=== PATIENT | male | born 1970 | race Caucasian/White ===

== ENCOUNTER 2020-04-04 15:51 | Inpatient (IN) | payer OTHER ==
[2020-04-04 17:13] VITALS: BMI 21.9
--- NOTE | 2020-04-04 18:18 | HP ---
CIWA Score - Admission Criteria [facility] Guidelines: Admission for Medically Managed Detox: Requires at least one of the followin. CIWA greater than 12 2. Seizures within the past 24 hours 3. Delirium tremens within the past 24 hours 4. Hallucinations within the past 24 hours 5. Acute intervention needed for co occurring medical disorder 6. Acute intervention needed for co occurring psychiatric disorder 7. Severe withdrawal that cannot be handled at a lower level of care (continued vomiting, continued diarrhea, abnormal vital signs) requiring intravenous medication and/or fluids 8. Admission ROS S - HPI Chief Complaint: " I need to stop drinking and get my life on track. This time I want to do it." Allergies/Adverse Reactions: Allergies Allergy/AdvReac Type Severity Reaction Status Date / Time amoxicillin Allergy Intermediate Hives Verified 04/04/20 18:55 History of Present Illness: 49 yo admitted to [facility] on 03/28/20, and discharged today, where was treated for Pulmonary Embolism w/ Infarct and had co-occurring heroin and alcohol use disorder. Was detoxed @ [facility]. Last dose methadone today was 20 mg. Denies blackouts, overdoses, or seizures. Alcohol use began at age 5. Was drinking 1 case beer daily prior to hospitalization. Heroin use began at age 12. States using x 42 years. Was using 7-8 bags both IV and nasal prior to hospitalization. Is interested in getting on a Methadone Program. Patient was medicated w/ Methadone 20 mg and informed that dose would be tapered off. Nicotine use began at 9. Smoke 2PPD. Last smoked 03/28. Has been using nicorette gum. Does not want the patch. PMHx: PE w/ infarct; Blood clots - BLE; cellulitis (L) leg; HTN; Elevated LFT's; Blind (L) eye COVID Test negative - 03/28/20 MHHx: Denies depression. Denies thoughts of harming self or others SHx: Domiciled. Unemployed. Denies legal issues. Patient Name: Ga Marks Date: 1970 Address: [address] [place] [id number] Sex: Male Rx Written Rx Dispensed Drug Quantity Days Supply Prescriber Name Payment Method Dispenser 09/08/2019 09/08/2019 methadone hcl 5 mg tablet 6 2 Rufina Camilo [facility] #[id number] Exam Limitations: No Limitations - Ebola screening Have you traveled outside of the country in the last 21 days: No (COVID neg) Have you had contact with anyone from an Ebola affected area: No Have you been sick,other than usual withdrawal symptoms: No Do you have a fever: No - Review of Systems Constitutional: Changes in sleep (Difficulty staying asleep), Unintentional Wgt. Loss EENT: reports: Blurred Vision (reading), Dental Problems (Missing multiple teeth - chews and swallows ok), Other (Blind (L) eye) Respiratory: reports: SOB with Exertion Cardiac: reports: No Symptoms Reported GI: reports: No Symptoms Reported : reports: No Symptoms Reported Musculoskeletal: reports: Back Pain (Chronic sharp/pins and needles pain of full spine - triggered by fast movement. Improves w/ rest) Integumentary: reports: Bruising Neuro: reports: Numbness (in legs -uses cane to steady self) Endocrine: reports: No Symptoms Reported Hematology: reports: Blood Clots, Easy Bleeding, Easy Bruising Psychiatric: reports: Judgement Intact, Mood/Affect Appropiate, Orientated x3 Patient History - PPD History Previous Implant?: Yes Documented Results: Negative w/o proof Implanted On Prior [facility] Admission?: No PPD to be Administered?: Yes - Smoking Cessation Smoking history: Current every day smoker Have you smoked in the past 12 months: Yes Aproximately how many cigarettes per day: 40 Hx Chewing Tobacco Use: No Initiated information on smoking cessation: Yes 'Breaking Loose' booklet given: 04/04/20 - Substance & Tx. History Hx Alcohol Use: Yes Hx Substance Use: Yes Substance Use Type: Alcohol, Heroin Hx Substance Use Treatment: Yes (detox, rehabs ) - Substances abused Heroin Substance route: Inhalation Frequency: Daily Amount used: 6 to 7 bags Age of first use: 12 Date of last use: 03/28/20 Alcohol Substance route: Oral Frequency: Daily Amount used: 1 case of beer Age of first use: 5 Date of last use: 03/28/20 Admission Physical Exam [facility] - Vital Signs Vital Signs: Vital Signs - 24 hr 04/04/20 17:11 Temperature 98.1 F Pulse Rate 105 H Respiratory 18 Rate Blood Pressure 157/99 - Physical General Appearance: Yes: Thin, Tremorous HEENTM: Yes: Hearing grossly Normal, Normal Voice, Pharynx Normal, Orbits (Blind (L) eye; (R) pupil reacts to light - vision intact) Respiratory: Yes: Lungs Clear, Normal Breath Sounds, No Respiratory Distress Neck: Yes: No masses,lesions,Nodules, Supple Breast: Yes: Breast Exam Deferred Cardiology: Yes: Regular Rhythm, Regular Rate, S1, S2 Abdominal: Yes: Normal Bowel Sounds, Non Tender, Flat, Soft Genitourinary: Yes: Within Normal Limits Back: Yes: Normal Inspection Musculoskeletal: Yes: Other (Decreased ROM BLE r/t edema) Extremities: Yes: Tremors, Pedal Edema, Other (BLE edema toes to knees) Neurological: Yes: Fully Oriented, Alert, Motor Strength 5/5, Normal M ood/Affect, Normal Response Integumentary: Yes: Dry, Warm, Erythema (ecchimotic areas), Pitting Edema, Other (Superficial 15 mm ulcer above (R) inner malleolus - serous drainage) - Diagnostic (1) Alcohol use disorder, severe, in early remission Current Visit: Yes Status: Acute (2) Nicotine dependence, unspecified, uncomplicated Current Visit: Yes Status: Chronic Qualifiers: Nicotine product type: cigarettes Qualified Code(s): F17.210 - Nicotine dependence, cigarettes, uncomplicated (3) Opioid use disorder Current Visit: Yes Status: Chronic (4) Cellulitis Current Visit: Yes Status: Acute Qualifiers: Site of cellulitis: extremity Site of cellulitis of extremity: lower extremity Laterality: unspecified laterality Qualified Code(s): L03.119 - Cellulitis of unspecified part of limb Comment: BLE (5) History of pulmonary embolus (PE) Current Visit: Yes Status: Chronic Comment: On Xarelto (6) Blind left eye Current Visit: Yes Status: Chronic Qualifiers: Right eye visual impairment category: right - normal vision Qualified Code(s): H54.40 - Blindness, one eye, unspecified eye (7) Elevated LFTs Current Visit: Yes Status: Chronic (8) Elevated blood pressure reading Current Visit: Yes Status: Acute (9) Ulcer Current Visit: Yes Status: Chronic Cleared for Admission [facility] - Detox or Rehab Claeared for Rehab Admission: Yes Breathalyzer - Breathalyzer Breathalyzer: 0 Urine Drug Screen - Test Device Lot number: [id number] Expiration date: 04/04/21 - Control Is test valid?: Yes - Results Drug screen NEGATIVE: No Urine drug screen results: FEN-Fentanyl, MTD-Methadone, BZO-Benzodiazepines Inpatient Rehab Admission - Rehab Decision to Admit Inpatient rehab admission?: Yes - Initial Determination Are CD services needed?: Yes Free of communicable disease: Yes Not in need of hospitalization: Yes - Rehab Admission Criteria Previous failed treatment: Yes Poor recovery environment: Yes Comorbidities: Yes Lacks judgement: No Patient is meeting Inpatient Rehab admission criteria:: Yes
[2020-04-04] MEDS ORDERED: MAGNESIUM CITRATE 300 ML BOTTLE PO PRN (19:37)
[2020-04-04] MEDS ORDERED: P-EPHED 60MG/TRIPROLIDI 2.5MG TABLET PO PRN (19:37)
[2020-04-04] MEDS ORDERED: MAGNESIUM HYDROX 2400MG/30ML ORAL SUSPENSION 30 ML CUP PO PRN (19:37)
[2020-04-04] MEDS ORDERED: guaiFENesin 200 MG/10 ML 10 ML UNIT-DOSE CUPS PO PRN (19:37)
[2020-04-04] MEDS ORDERED: MAG HYDROX/AL HYDROX/SIMETH 30 ML UNIT-DOSE CUP PO PRN (19:37)
[2020-04-04] MEDS ORDERED: LOPERAMIDE HCL 2 MG CAPSULE PO PRN (19:37)
[2020-04-04] MEDS ORDERED: IBUPROFEN 400 MG TABLET (FP) PO PRN (19:37)
[2020-04-04] MEDS ORDERED: cloNIDine HCL 0.1 MG TABLET PO ONE (19:43)
[2020-04-04] MEDS ORDERED: hydrOXYzine PAMOATE 25 MG CAPSULE (FP) PO SCH (22:00)
[2020-04-04] MEDS ORDERED: CIPROFLOXACIN 500 MG TABLET (RESTRICTED TO ID) PO SCH (22:00)
[2020-04-04] MEDS: MELATONIN 5 MG TABLETS PO SCH (22:23)
[2020-04-04] MEDS: THIAMINE HCL 100 MG TABLET (FP) PO SCH (22:23)
[2020-04-04] MEDS: SULFAMETHOXAZOLE/TRIMETHOPRIM 800MG/160MG D.S. TABLET PO SCH (22:23)
[2020-04-05] MEDS ORDERED: METHADONE HCL 10 MG TABLET PO ONE (10:00)
[2020-04-05] MEDS: RIVAROXABAN 15 MG TABLET PO SCH (10:18)
[2020-04-05] MEDS: SULFAMETHOXAZOLE/TRIMETHOPRIM 800MG/160MG D.S. TABLET PO SCH ×2 (10:18→21:16)
[2020-04-05] MEDS: PRENATAL VITAMINS W/ FOLIC ACID TABLET (FP) PO SCH (10:18)
[2020-04-05] MEDS: NICOTINE POLACRILEX 4 MG GUM BC PRN ×3 (10:19→21:22)
--- NOTE | 2020-04-05 10:38 | EKG ---
Test Reason : Blood Pressure : / mmHG Vent. Rate : 096 BPM Atrial Rate : 096 BPM P-R Int : 132 ms QRS Dur : 072 ms QT Int : 352 ms P-R-T Axes : 061 080 070 degrees QTc Int : 444 ms NORMAL SINUS RHYTHM NORMAL ECG NO PREVIOUS ECGS AVAILABLE Confirmed by Andreas Rivas MD ([id number]) on 04/05/2020 10:36:55 AM Referred By: Confirmed By:Andreas Rivas MD
[2020-04-05 16:17] LABS: HEMATOCRIT 31.9 % (35.4-49); HEMOGLOBIN 10.4 GM/dL (11.7-16.9); MCH 30.1 pg (25.7-33.7); MCHC 32.5 g/dl (32.0-35.9); MEAN CELL VOLUME 92.8 fl (80-96); MEAN PLT VOLUME 9.1 fl (7.5-11.1); PLATELET COUNT 202 K/MM3 (134-434); RBC 3.44 M/mm3 (4.00-5.60); RDW 17.4 % (11.9-15.9); WHITE BLOOD COUNT 4.5 K/mm3 (4.0-10.0)
[2020-04-05 16:20] LABS: ALBUMIN 1.9 g/dl (3.4-5.0); BILIRUBIN,TOTAL 0.6 mg/dL (0.2-1); CALCIUM 8.8 mg/dL (8.5-10.1); CREATININE 0.7 mg/dL (0.55-1.3); POTASSIUM 4.8 mmol/L (3.5-5.1); TOT PROT 6.5 g/dl (6.4-8.2)
[2020-04-05 16:59] LABS: SICKLE CELL SCREEN NEGATIVE (NEGATIVE)
[2020-04-05] MEDS: MELATONIN 5 MG TABLETS PO SCH (21:16)
[2020-04-05] MEDS: THIAMINE HCL 100 MG TABLET (FP) PO SCH (21:16)
[2020-04-05] MEDS: hydrOXYzine PAMOATE 25 MG CAPSULE (FP) PO PRN (21:17)
[2020-04-06] MEDS: ACETAMINOPHEN 325 MG TABLET (FP) PO PRN (05:49)
[2020-04-06] MEDS: NICOTINE POLACRILEX 4 MG GUM BC PRN ×4 (08:45→21:19)
[2020-04-06] MEDS ORDERED: PT OWN MED DRAWER 7, Y5N ONE (08:57)
[2020-04-06] MEDS ORDERED: METHADONE HCL 5 MG TABLET PO ONE (10:00)
[2020-04-06] MEDS: PRENATAL VITAMINS W/ FOLIC ACID TABLET (FP) PO SCH (10:04)
[2020-04-06] MEDS: SULFAMETHOXAZOLE/TRIMETHOPRIM 800MG/160MG D.S. TABLET PO SCH ×2 (10:04→21:17)
[2020-04-06] MEDS: RIVAROXABAN 15 MG TABLET PO SCH (10:04)
[2020-04-06] MEDS: MELATONIN 5 MG TABLETS PO SCH (21:17)
[2020-04-06] MEDS: THIAMINE HCL 100 MG TABLET (FP) PO SCH (21:17)
[2020-04-06] MEDS: hydrOXYzine PAMOATE 25 MG CAPSULE (FP) PO PRN (21:18)
[2020-04-07] MEDS: NICOTINE POLACRILEX 4 MG GUM BC PRN ×4 (06:17→21:10)
[2020-04-07] MEDS ORDERED: PT OWN MED DRAWER 7, Y5N ONE (08:49)
[2020-04-07] MEDS: SULFAMETHOXAZOLE/TRIMETHOPRIM 800MG/160MG D.S. TABLET PO SCH ×2 (10:03→21:08)
[2020-04-07] MEDS: RIVAROXABAN 15 MG TABLET PO SCH (10:03)
[2020-04-07] MEDS: PRENATAL VITAMINS W/ FOLIC ACID TABLET (FP) PO SCH (10:03)
[2020-04-07 17:44] LABS: EPI CELLS 13 /uL (0-25.1); HYALINE CASTS 2 /uL (0-3.1); URINE APPEARANCE CLEAR; URINE BACTERIA 10 /uL (0-1359); URINE BILIRUBIN NEGATIVE (NEGATIVE); URINE COLOR YELLOW; URINE GLUCOSE (UA) NEGATIVE (NEGATIVE); URINE KETONE NEGATIVE (NEGATIVE); URINE LEUK ESTERASE NEGATIVE (NEGATIVE); URINE NITRITE NEGATIVE (NEGATIVE); URINE PROTEIN NEGATIVE (NEGATIVE); URINE RBC 459 /uL (0-23.9); URINE WBC 12 /uL (0-25.8)
[2020-04-07] MEDS: MELATONIN 5 MG TABLETS PO SCH (21:08)
[2020-04-07] MEDS: THIAMINE HCL 100 MG TABLET (FP) PO SCH (21:08)
[2020-04-07] MEDS: ACETAMINOPHEN 325 MG TABLET (FP) PO PRN (21:09)
[2020-04-08] MEDS: NICOTINE POLACRILEX 4 MG GUM BC PRN ×4 (06:14→21:16)
[2020-04-08] MEDS: RIVAROXABAN 15 MG TABLET PO SCH (10:01)
[2020-04-08] MEDS: SULFAMETHOXAZOLE/TRIMETHOPRIM 800MG/160MG D.S. TABLET PO SCH ×2 (10:01→21:15)
[2020-04-08] MEDS: PRENATAL VITAMINS W/ FOLIC ACID TABLET (FP) PO SCH (10:01)
--- NOTE | 2020-04-08 12:53 | PN ---
[facility] Progress Note Note: Patient evaluated for c/o dyspnea on exertion. Patient has hx of PE, IVDA and cellulitis. Patient is currently on Levaquin and Bactrim DS. He denies chest pain, dizziness, fever and cough. States he has sob during ambulation in hallway and has to stop to rest and catch his breath. V/S: O2 sat 99% HR 103 RR 19 BP 159/93 Laboratory Tests 04/05/20 04/05/20 04/05/20 08:40 08:40 08:40 WBC 4.5 RBC 3.44 L Hgb 10.4 L Hct 31.9 L MCV 92.8 MCH 30.1 MCHC 32.5 RDW 17.4 H Plt Count 202 MPV 9.1 Sickle Cell Screen Negative Sodium 140 Potassium 4.8 Chloride 110 H Carbon Dioxide 22 Anion Gap 9 BUN 9.0 Creatinine 0.7 Est GFR (CKD-EPI)AfAm 127.53 Est GFR (CKD-EPI)NonAf 110.04 Random Glucose 91 Calcium 8.8 Total Bilirubin 0.6 AST 47 H ALT 19 Alkaline Phosphatase 221 H Total Protein 6.5 Albumin 1.9 L Urine Color Urine Appearance Urine pH Ur Specific [place] Urine Protein Urine Glucose (UA) Urine Ketones Urine Blood Urine Nitrite Urine Bilirubin Urine Urobilinogen Ur Leukocyte Esterase Urine WBC (Auto) Urine RBC (Auto) Urine Casts (Auto) U Epithel Cells (Auto) Urine Bacteria (Auto) Syphilis Serology Non-reactive 04/07/20 15:50 WBC RBC Hgb Hct MCV MCH MCHC RDW Plt Count MPV Sickle Cell Screen Sodium Potassium Chloride Carbon Dioxide Anion Gap BUN Creatinine Est GFR (CKD-EPI)AfAm Est GFR (CKD-EPI)NonAf Random Glucose Calcium Total Bilirubin AST ALT Alkaline Phosphatase Total Protein Albumin Urine Color Yellow Urine Appearance Clear Urine pH 8.0 Ur Specific [place] 1.014 Urine Protein Negative Urine Glucose (UA) Negative Urine Ketones Negative Urine Blood 2+ H Urine Nitrite Negative Urine Bilirubin Negative Urine Urobilinogen 1.0 Ur Leukocyte Esterase Negative Urine WBC (Auto) 12 Urine RBC (Auto) 459 Urine Casts (Auto) 2 U Epithel Cells (Auto) 13 Urine Bacteria (Auto) 10 Syphilis Serology PE alert and oriented x 3 skin warm and dry neck supple, no jvd car s1s2, rrr no murmurs resp cta bl, no wheezes, rhonchi gi nt, nd ext BLE with 2+ pitting edema, no redness or calf tenderness/redness full rom A/P: HDZ EKG now: results NSR CXR ordered for today patient to continue abx as ordered and educated to notify nursing/medical staff for worsening sob, chest pain and dizziness will continue to monitor clinically
[2020-04-08] MEDS: ACETAMINOPHEN 325 MG TABLET (FP) PO PRN (21:15)
[2020-04-08] MEDS: THIAMINE HCL 100 MG TABLET (FP) PO SCH (21:15)
[2020-04-08] MEDS: MELATONIN 5 MG TABLETS PO SCH (21:15)
[2020-04-09] MEDS: NICOTINE POLACRILEX 4 MG GUM BC PRN ×4 (06:16→18:19)
[2020-04-09] MEDS: SULFAMETHOXAZOLE/TRIMETHOPRIM 800MG/160MG D.S. TABLET PO SCH ×2 (09:50→21:08)
[2020-04-09] MEDS: RIVAROXABAN 15 MG TABLET PO SCH (09:50)
[2020-04-09] MEDS: PRENATAL VITAMINS W/ FOLIC ACID TABLET (FP) PO SCH (09:50)
[2020-04-09] MEDS: ACETAMINOPHEN 325 MG TABLET (FP) PO PRN (19:56)
[2020-04-09] MEDS: MELATONIN 5 MG TABLETS PO SCH (21:08)
[2020-04-09] MEDS: THIAMINE HCL 100 MG TABLET (FP) PO SCH (21:08)
[2020-04-09] MEDS: hydrOXYzine PAMOATE 25 MG CAPSULE (FP) PO PRN (21:09)
[2020-04-10] MEDS: NICOTINE POLACRILEX 4 MG GUM BC PRN ×5 (06:47→21:37)
[2020-04-10] MEDS: PRENATAL VITAMINS W/ FOLIC ACID TABLET (FP) PO SCH (09:33)
[2020-04-10] MEDS: SULFAMETHOXAZOLE/TRIMETHOPRIM 800MG/160MG D.S. TABLET PO SCH ×2 (09:33→21:35)
[2020-04-10] MEDS: RIVAROXABAN 15 MG TABLET PO SCH (09:33)
--- NOTE | 2020-04-10 12:46 | EKG ---
Test Reason : Blood Pressure : / mmHG Vent. Rate : 085 BPM Atrial Rate : 085 BPM P-R Int : 146 ms QRS Dur : 076 ms QT Int : 382 ms P-R-T Axes : 059 077 055 degrees QTc Int : 454 ms NORMAL SINUS RHYTHM NORMAL ECG WHEN COMPARED WITH ECG OF 04-APR-2020 18:18, NO SIGNIFICANT CHANGE WAS FOUND Confirmed by Julio Cavazos ([id number]) on 04/10/2020 12:46:04 PM Referred By: Confirmed By:Julio Cavazos
[2020-04-10] MEDS: MELATONIN 5 MG TABLETS PO SCH (21:35)
[2020-04-10] MEDS: hydrOXYzine PAMOATE 25 MG CAPSULE (FP) PO PRN (21:35)
[2020-04-10] MEDS: THIAMINE HCL 100 MG TABLET (FP) PO SCH (21:35)
[2020-04-10] MEDS: ACETAMINOPHEN 325 MG TABLET (FP) PO PRN (21:36)
[2020-04-11] MEDS: NICOTINE POLACRILEX 4 MG GUM BC PRN ×5 (06:37→21:09)
[2020-04-11] MEDS: ACETAMINOPHEN 325 MG TABLET (FP) PO PRN ×2 (06:39→21:09)
[2020-04-11] MEDS: PRENATAL VITAMINS W/ FOLIC ACID TABLET (FP) PO SCH (09:53)
[2020-04-11] MEDS: SULFAMETHOXAZOLE/TRIMETHOPRIM 800MG/160MG D.S. TABLET PO SCH ×2 (09:53→21:08)
[2020-04-11] MEDS: RIVAROXABAN 15 MG TABLET PO SCH (09:53)
[2020-04-11] MEDS ORDERED: ALBUTEROL SO4 HFA INHALER IH PRN (10:22)
--- NOTE | 2020-04-11 11:06 | PN ---
[facility] Progress Note Note: PATIENT EVALUATED FOR F/U DYSPNEA ON EXERTION. PATIENT STATES HE IS FEELING BETTER. DENIES SOB, COUGH, CHEST PAIN AND DIZZINESS. HE WAS INFORMED OF CXR AND STATES HE IS AWARE OF HIS LUNG CONDITION WHICH HE ATTRIBUTES TO SMOKING. PATIENT REPORTS HAVING ALBUTEROL INH PRESCRIBED TO HIM WHILE HE WAS LIVING IN [place] BUT HAS BEEN NONCOMPLIANT WITH TREATMENT. Vital Signs Temperature 97.1 F L 04/11/20 06:30 Pulse Rate 108 H 04/11/20 06:30 Respiratory Rate 20 04/11/20 06:30 Blood Pressure 125/88 04/11/20 06:30 O2 Sat by Pulse Oximetry (%) 99 04/11/20 06:30 Laboratory Tests 04/05/20 04/05/20 04/05/20 08:40 08:40 08:40 WBC 4.5 RBC 3.44 L Hgb 10.4 L Hct 31.9 L MCV 92.8 MCH 30.1 MCHC 32.5 RDW 17.4 H Plt Count 202 MPV 9.1 Sickle Cell Screen Negative Sodium 140 Potassium 4.8 Chloride 110 H Carbon Dioxide 22 Anion Gap 9 BUN 9.0 Creatinine 0.7 Est GFR (CKD-EPI)AfAm 127.53 Est GFR (CKD-EPI)NonAf 110.04 Random Glucose 91 Calcium 8.8 Total Bilirubin 0.6 AST 47 H ALT 19 Alkaline Phosphatase 221 H Total Protein 6.5 Albumin 1.9 L Urine Color Urine Appearance Urine pH Ur Specific [place] Urine Protein Urine Glucose (UA) Urine Ketones Urine Blood Urine Nitrite Urine Bilirubin Urine Urobilinogen Ur Leukocyte Esterase Urine WBC (Auto) Urine RBC (Auto) Urine Casts (Auto) U Epithel Cells (Auto) Urine Bacteria (Auto) Syphilis Serology Non-reactive 04/07/20 15:50 WBC RBC Hgb Hct MCV MCH MCHC RDW Plt Count MPV Sickle Cell Screen Sodium Potassium Chloride Carbon Dioxide Anion Gap BUN Creatinine Est GFR (CKD-EPI)AfAm Est GFR (CKD-EPI)NonAf Random Glucose Calcium Total Bilirubin AST ALT Alkaline Phosphatase Total Protein Albumin Urine Color Yellow Urine Appearance Clear Urine pH 8.0 Ur Specific [place] 1.014 Urine Protein Negative Urine Glucose (UA) Negative Urine Ketones Negative Urine Blood 2+ H Urine Nitrite Negative Urine Bilirubin Negative Urine Urobilinogen 1.0 Ur Leukocyte Esterase Negative Urine WBC (Auto) 12 Urine RBC (Auto) 459 Urine Casts (Auto) 2 U Epithel Cells (Auto) 13 Urine Bacteria (Auto) 10 Syphilis Serology HDZ RESOLVED HX OF COPD/ASTHMA HEMATURIA (LIKELY R/T TO XARELTO PT ASYMPTOMATIC) WILL REPEAT UA ALBUTEROL INH ORDERED NEEDED CONTINUE XARELTO ORDERED DUE TO HX OF DVT MONITOR CLINICALLY
[2020-04-11 18:59] LABS: EPI CELLS 1 /uL (0-25.1); HYALINE CASTS 1 /uL (0-3.1); PH,URINE 7.5 (5.0-8.0); URINE APPEARANCE CLEAR; URINE BACTERIA 4 /uL (0-1359); URINE BILIRUBIN NEGATIVE (NEGATIVE); URINE COLOR YELLOW; URINE GLUCOSE (UA) NEGATIVE (NEGATIVE); URINE KETONE NEGATIVE (NEGATIVE); URINE LEUK ESTERASE NEGATIVE (NEGATIVE); URINE NITRITE NEGATIVE (NEGATIVE); URINE PROTEIN NEGATIVE (NEGATIVE); URINE RBC 366 /uL (0-23.9); URINE UROBILINOGEN 0.2 mg/dL (0.2-1.0); URINE WBC 3 /uL (0-25.8)
[2020-04-11] MEDS: THIAMINE HCL 100 MG TABLET (FP) PO SCH (21:08)
[2020-04-11] MEDS: MELATONIN 5 MG TABLETS PO SCH (21:08)
[2020-04-12] MEDS: NICOTINE POLACRILEX 4 MG GUM BC PRN ×2 (06:53→10:07)
[2020-04-12 07:48] VITALS: BP 142/88; PULSE 101; TEMP 97.8
[2020-04-12] MEDS ORDERED: PT OWN MED DRAWER 7, Y5N ONE (08:56)
[2020-04-12] MEDS: SULFAMETHOXAZOLE/TRIMETHOPRIM 800MG/160MG D.S. TABLET PO SCH (10:06)
[2020-04-12] MEDS: PRENATAL VITAMINS W/ FOLIC ACID TABLET (FP) PO SCH (10:06)
[2020-04-12] MEDS: RIVAROXABAN 15 MG TABLET PO SCH (10:06)
--- NOTE | 2020-04-12 14:56 | DS ---
[facility] Rehab Discharge Summary - [facility] Rehab Discharge Summary Admission Date: 04/04/20 Discharge Date: 04/12/20 - History Present History: Alcohol dependence, Opioid dependence Pertinent Past History: 49 yo admitted to [facility] on 03/28/20,, where was treated for Pulmonary Embolism w/ Infarct and had co-occurring heroin and alcohol use disorder. Was detoxed @ [facility]. Last dose methadone today was 20 mg. Denies blackouts, overdoses, or seizures. Alcohol use began at age 5. Was drinking 1 case beer daily prior to hospitalization. Heroin use began at age 12. States using x 42 years. Was using 7-8 bags both IV and nasal prior to hospitalization. Is interested in getting on a Methadone Program. Nicotine use began at 9. Smoke 2PPD. Last smoked 03/28. Has been using nicorette gum. Does not want the patch. PMHx: PE w/ infarct; Blood clots - BLE; cellulitis (L) leg; HTN; Elevated LFT's; Blind (L) eye COVID Test negative - 03/28/20 MHHx: Denies depression. Denies thoughts of harming self or others SHx: Domiciled. Unemployed. Denies legal issues. - Discharge Physical Exam Vital Signs: Vital Signs Temperature 97.8 F 04/12/20 06:43 Pulse Rate 101 H 04/12/20 06:43 Respiratory Rate 18 04/12/20 06:43 Blood Pressure 142/88 04/12/20 06:43 O2 Sat by Pulse Oximetry (%) 97 04/12/20 06:43 Pertinent Admission Physical Exam Findings: Physical General Appearance: No apparent distress HEENTM: (Blind (L) eye; (R) pupil reacts to light - vision intact) Respiratory: No Respiratory Distress Neck: Supple Cardiology: Yes: Regular Rhythm, Regular Rate, S1, S2 Abdominal: +Bowel Sounds Musculoskeletal: Decreased ROM BLE r/t edema Extremities: Pedal Edema,BLE edema toes to knees Neurological: Motor Strength 5/5 Integumentary:Pitting Edema, Other (Superficial 15 mm ulcer above (R) inner malleolus - serous drainage) - Treatment Discharge Condition: Discharge condition good (medically stable for discharge.), Outpatient referral accepted (Patient states he has a list of AA/NA meetings and he will arrange to attend the meetings. Referred to [facility].) Hospital Course: patient attended groups, had 1:1 with his counselor, was adherent to his medication regimen and treatment plan. He continued the abx while in rehab. - Medication Discharge Medications: Ambulatory Orders Folic Acid 0.8 mg PO DAILY 04/04/20 Thiamine HCl [Vitamin B-1] 1 tablet PO DAILY 04/04/20 Albuterol Sulfate Inhaler - [Ventolin HFA Inhaler -] 2 puff IH Q4H PRN #1 inhaler 04/12/20 Ciprofloxacin HCl 500 mg PO BID #10 tablet 04/12/20 Rivaroxaban [Xarelto] 15 mg PO DAILY #30 tablet 04/12/20 Sulfamethoxazole/Trimethoprim [Bactrim Ds Tablet] 1 tablet PO BID #30 tablet 04/12/20 - Medication-Assisted Treatment (MAT) Medication-Assisted Treatment (MAT): No - Discharge Instructions Diet, activity, other medical instructions: Diet: as tolerated Activity: as tolerated Other medical instructions: Please follow up with aftercare referral. - Diagnosis (1) Alcohol use disorder, severe, in early remission Current Visit: Yes Status: Acute (2) Opioid use disorder Current Visit: Yes Status: Chronic
== END 2020-04-12 16:10 | disposition home or self-care (01) | DRG 772 ==
LOC: YASAS 15:51 → Y3W 18:59
PROVIDERS: ADMIT Allergy & Immunology; ATTEND Allergy & Immunology
PROC: HZ42ZZZ Group Counseling for Substance Abuse Treatment, Cognitive-Behavioral (ICD-10-PCS; principal; 2020-04-04)
DX: F11.20 Opioid dependence, uncomplicated (principal); F10.20 Alcohol dependence, uncomplicated; F17.210 Nicotine dependence, cigarettes, uncomplicated; I10 Essential (primary) hypertension; J44.9 Chronic obstructive pulmonary disease, unspecified; L03.116 Cellulitis of left lower limb; L03.115 Cellulitis of right lower limb; L97.311 Non-pressure chronic ulcer of right ankle limited to breakdown of skin; D68.32 Hemorrhagic disorder due to extrinsic circulating anticoagulants; R31.9 Hematuria, unspecified; Z88.1 Allergy status to other antibiotic agents; H54.62 Unqualified visual loss, left eye, normal vision right eye; R60.0 Localized edema; R94.5 Abnormal results of liver function studies; Z86.711 Personal history of pulmonary embolism; Z79.01 Long term (current) use of anticoagulants; Z86.718 Personal history of other venous thrombosis and embolism
CPT/HCPCS: 36415; 71046-TC-FY; 80053; 81003; 85027; 85660; 86780; 93005; 93010; J0735

== ENCOUNTER 2023-07-31 12:18 | Inpatient (IN) | payer OTHER ==
[2023-07-31 13:21] VITALS: BMI 20.7
[2023-07-31] MEDS ORDERED: BISMUTH SUBSALICYLATE 524 MG/30 ML PO PRN (18:12)
[2023-07-31] MEDS ORDERED: IBUPROFEN 600 MG TABLET (FP) PO PRN (18:12)
[2023-07-31] MEDS ORDERED: hydrOXYzine PAMOATE 25 MG CAPSULE (FP) PO PRN (18:12)
[2023-07-31] MEDS ORDERED: guaiFENesin 600 MG TABLET.ER (FP) PO PRN (18:12)
[2023-07-31] MEDS ORDERED: IBUPROFEN 400 MG TABLET (FP) PO PRN (18:12)
[2023-07-31] MEDS ORDERED: MAG HYDROX/AL HYDROX/SIMETH 30 ML UNIT-DOSE CUP PO PRN (18:12)
[2023-07-31] MEDS ORDERED: LOPERAMIDE HCL 2 MG CAPSULE PO PRN (18:12)
[2023-07-31] MEDS ORDERED: BENZOCAINE/MENTHOL (CHLORASEPTIC ) LOZENGE MM PRN (18:12)
[2023-07-31] MEDS ORDERED: P-EPHED 60MG/TRIPROLIDI 2.5MG TABLET PO PRN (18:12)
[2023-07-31] MEDS ORDERED: ACETAMINOPHEN 325 MG TABLET (FP) PO PRN (18:12)
[2023-07-31] MEDS ORDERED: NALOXONE HCL 0.4 MG/ML VIAL IM PRN (18:12)
[2023-07-31] MEDS ORDERED: NALOXONE HCL (KLOXXADO) 8 MG SPRAY NS PRN (18:12)
[2023-07-31] MEDS ORDERED: ONDANSETRON *ODT* 4 MG TABLET SL PRN (18:12)
[2023-07-31] MEDS ORDERED: DICYCLOMINE HCL 10 MG CAPSULE PO PRN (18:12)
[2023-07-31] MEDS ORDERED: POLYETHYLENE GLYCOL (HEALTHYLAX) 3350 17 GM PACKET PO PRN (18:12)
[2023-07-31] MEDS ORDERED: BENZONATATE 200 MG CAPSULE PO PRN (18:12)
[2023-07-31] MEDS ORDERED: MAGNESIUM HYDROX 2400MG/30ML ORAL SUSPENSION 30 ML CUP PO PRN (18:12)
[2023-07-31] MEDS: NICOTINE POLACRILEX 2 MG GUM BUC PRN ×2 (19:34→21:34)
[2023-07-31] MEDS: METHOCARBAMOL 500 MG TABLET PO PRN (21:21)
[2023-07-31] MEDS: THIAMINE HCL 100 MG TABLET (FP) PO SCH (21:21)
[2023-07-31] MEDS ORDERED: MELATONIN 5 MG TABLETS PO SCH (22:00)
[2023-08-01] MEDS ORDERED: ALBUTEROL SO4 HFA INHALER IH PRN (08:33)
[2023-08-01] MEDS ORDERED: methaDONE HCL 10 MG TABLET (FOR DETOX USE ONLY) PO ONE ×2 (08:48→10:04)
[2023-08-01] MEDS: METHOCARBAMOL 500 MG TABLET PO PRN (10:21)
[2023-08-01] MEDS: RIVAROXABAN 15 MG TABLET PO SCH (10:21)
[2023-08-01] MEDS: PRENATAL VITAMINS W/ FOLIC ACID TABLET (FP) PO SCH (10:21)
[2023-08-01] MEDS: NICOTINE POLACRILEX 2 MG GUM BUC PRN ×4 (10:24→21:06)
[2023-08-01] MEDS: NICOTINE 21 MG/24 HOURS TOPICAL PATCH TD PRN ×2 (12:31→14:40)
[2023-08-01] MEDS ORDERED: MELATONIN 5 MG TABLETS PO SCH (22:00)
[2023-08-01] MEDS: THIAMINE HCL 100 MG TABLET (FP) PO SCH (22:15)
[2023-08-02] MEDS ORDERED: cloNIDine HCL 0.1 MG TABLET PO ONE (05:37)
[2023-08-02] MEDS: NICOTINE POLACRILEX 2 MG GUM BUC PRN ×3 (05:44→12:57)
[2023-08-02] MEDS: PRENATAL VITAMINS W/ FOLIC ACID TABLET (FP) PO SCH (09:38)
[2023-08-02] MEDS: RIVAROXABAN 15 MG TABLET PO SCH (09:38)
[2023-08-02] MEDS: METHOCARBAMOL 500 MG TABLET PO PRN (09:38)
[2023-08-02] MEDS: NICOTINE 21 MG/24 HOURS TOPICAL PATCH TD PRN (09:42)
[2023-08-02] MEDS: hydrOXYzine PAMOATE 25 MG CAPSULE (FP) PO PRN ×2 (14:43→22:07)
[2023-08-02] MEDS ORDERED: cloNIDine HCL 0.1 MG TABLET PO PRN (16:22)
[2023-08-02] MEDS: THIAMINE HCL 100 MG TABLET (FP) PO SCH (22:04)
[2023-08-03] MEDS: hydrOXYzine PAMOATE 25 MG CAPSULE (FP) PO PRN ×2 (02:08→09:34)
[2023-08-03] MEDS: METHOCARBAMOL 500 MG TABLET PO PRN (05:31)
[2023-08-03] MEDS: RIVAROXABAN 15 MG TABLET PO SCH (09:34)
[2023-08-03] MEDS: PRENATAL VITAMINS W/ FOLIC ACID TABLET (FP) PO SCH (09:34)
[2023-08-03] MEDS ORDERED: methaDONE HCL 10 MG TABLET (FOR DETOX USE ONLY) PO ONE (10:00)
[2023-08-03] MEDS ORDERED: cloNIDine HCL 0.1 MG TABLET PO ONE (12:00)
[2023-08-03] MEDS: diazePAM 5 MG TABLET PO PRN ×3 (12:01→20:32)
[2023-08-03] MEDS: NICOTINE POLACRILEX 2 MG GUM BUC PRN (20:32)
[2023-08-03] MEDS: THIAMINE HCL 100 MG TABLET (FP) PO SCH (22:37)
[2023-08-03] MEDS: SUVOREXANT 10 MG TABLET PO PRN (22:38)
[2023-08-04] MEDS: cloNIDine HCL 0.1 MG TABLET PO PRN ×2 (01:27→07:28)
[2023-08-04] MEDS: METHOCARBAMOL 500 MG TABLET PO PRN (06:06)
[2023-08-04] MEDS: NICOTINE POLACRILEX 2 MG GUM BUC PRN ×4 (08:00→20:50)
[2023-08-04] MEDS: hydrOXYzine PAMOATE 25 MG CAPSULE (FP) PO PRN (10:11)
[2023-08-04] MEDS: PRENATAL VITAMINS W/ FOLIC ACID TABLET (FP) PO SCH (10:11)
[2023-08-04] MEDS: RIVAROXABAN 15 MG TABLET PO SCH (10:12)
[2023-08-04] MEDS: amLODIPine BESYLATE 5 MG TABLET (FP) PO SCH (10:14)
[2023-08-04] MEDS: NICOTINE 21 MG/24 HOURS TOPICAL PATCH TD PRN (10:18)
[2023-08-04 11:39] LABS: HEMOGLOBIN 14.5 GM/dL (11.7-16.9); MCH 29.3 pg (25.7-33.7); MCHC 34.5 g/dl (32.0-35.9); MEAN CELL VOLUME 84.9 fl (80-96); PLATELET COUNT 200 10^3/uL (134-434); RBC 4.95 M/mm3 (4.00-5.60); RDW 14.5 % (11.9-15.9); WHITE BLOOD COUNT 7.1 K/mm3 (4.0-10.0)
[2023-08-04 12:09] LABS: POTASSIUM 4.2 mmol/L (3.5-5.1)
[2023-08-04 12:20] LABS: ALBUMIN 3.6 g/dl (3.4-5.0); CALCIUM 9.4 mg/dL (8.5-10.1)
[2023-08-04 12:24] LABS: BILIRUBIN,TOTAL 0.6 mg/dL (0.2-1); BLOOD UREA NITROGEN 23.3 mg/dL (7-18); CREATININE 1.4 mg/dL (0.55-1.3); TOT PROT 7.6 g/dl (6.4-8.2)
[2023-08-04] MEDS: diazePAM 5 MG TABLET PO PRN ×2 (13:39→22:03)
[2023-08-04] MEDS: SUVOREXANT 10 MG TABLET PO PRN (22:02)
[2023-08-04] MEDS: THIAMINE HCL 100 MG TABLET (FP) PO SCH (22:05)
[2023-08-05] MEDS: NICOTINE POLACRILEX 2 MG GUM BUC PRN ×2 (00:51→09:32)
[2023-08-05] MEDS: hydrOXYzine PAMOATE 25 MG CAPSULE (FP) PO PRN (06:04)
[2023-08-05] MEDS: diazePAM 5 MG TABLET PO PRN (06:47)
[2023-08-05] MEDS: RIVAROXABAN 15 MG TABLET PO SCH (09:33)
[2023-08-05] MEDS: amLODIPine BESYLATE 5 MG TABLET (FP) PO SCH (09:35)
[2023-08-05] MEDS: PRENATAL VITAMINS W/ FOLIC ACID TABLET (FP) PO SCH (09:37)
[2023-08-05 09:44] VITALS: BP 140/93; PULSE 83; RESP 16; TEMP 97.5
[2023-08-05] MEDS ORDERED: methaDONE HCL 10 MG TABLET (FOR DETOX USE ONLY) PO ONE (10:00)
== END 2023-08-05 11:00 | disposition home or self-care (01) | DRG 773 ==
LOC: YASAS 12:18 → Y6N 18:28
PROVIDERS: ADMIT Allergy & Immunology; ATTEND Surgery
PROC: HZ2ZZZZ Detoxification Services for Substance Abuse Treatment (ICD-10-PCS; principal; 2023-07-31)
DX: F11.23 Opioid dependence with withdrawal (principal); F17.210 Nicotine dependence, cigarettes, uncomplicated; H54.62 Unqualified visual loss, left eye, normal vision right eye; I10 Essential (primary) hypertension; J45.20 Mild intermittent asthma, uncomplicated; N28.9 Disorder of kidney and ureter, unspecified; Z62.810 Personal history of physical and sexual abuse in childhood; Z63.8 Other specified problems related to primary support group; Z99.89 Dependence on other enabling machines and devices; Z86.711 Personal history of pulmonary embolism; Z86.718 Personal history of other venous thrombosis and embolism; Z79.01 Long term (current) use of anticoagulants; Z88.1 Allergy status to other antibiotic agents; Z28.310 Unvaccinated for COVID-19; Z28.9 Immunization not carried out for unspecified reason; Z56.0 Unemployment, unspecified; Z59.00 Homelessness unspecified
CPT/HCPCS: 36415; 80053; 82746; 85027; 86780; 87635; Q0162